=== PATIENT | female | born 1980 | race Caucasian/White ===

== ENCOUNTER 2017-07-17 16:50 | Emergency (ER) | payer MEDICAID ==
--- NOTE | 2017-07-17 23:01 | OBHP ---
Datetime: 07/17/2017 19:20 IP Adm Impression: , intrauterine IP Chief Complaint Other: pelvic pain IP Admit Plan: Observation/Evaluation; Discharge home Admit Comment, IP Provider: CC: pelvic pain HPI: 36 YO @ 25.5wks IUP (THANH 10/25/17 per U/S) presents to [facility] for palvic pain. Pt states th at she feels increase pressure in her pelvis since last night. Pain is dull, and has remained stable throughout. No increase in intensity. Endorsing good FM, no LOF, VB and ctx. Of note, pt recently came to the from [facility] 8 days go, was getting prental care [place]. MD: in [facility] ObHx: full term x 2 last (2014 last one); GDM in the past pregnancies; currently on Insu shelby TID (10U/15U/10U) states that her fasting is 120's and post is 140's-160's. PMH: DM SurgH: x 2 (last 2014) FH: hx of DM and HTN in family SH: , denies smoking, ETOH and illict drug use Meds: insulin, PNV, folic acid Allergies: NKDA PE GEN: NAD Cardio: S1S2 no additional heart sounds Resp: clear breath sounds b/l Abdomen: Gravid, NT, BS+ Neuro: AAO x 3 Extre: NT, mild pedal edema noted Doppler: HR 150's FM: no ctx noted Cervx: closed, thick and high A/P: 36 YO @ 25.5 wks IUP is evaluted for pelvic pressure, like 2/2 to round ligament pain. P t states that the pain has improved since she came to the hospital. No ctx on monitor, with HR in 150's. -observe and continue FM -FSG was 169, uncontrolled DM -reevaluate Pt was reevaluted, states that she no longer has the pain now. She would like to follow up in clin ic for care. Pt informed that due to her geststaional age, our clinic will not be able to pr ovide her care, but pt given alternative clinic information for further care. Pt encouraged to follow up in clinic due to her being a high risk . Pt educated on better control of her d iabetes, diet. ER pracautions provided. Pt understands and agrees with plan. Case disussed with attending Dr. Jass Batres, PGY I The patient was seen with the resident and I agree with the note. Pelvic Type - PN: Adequate Extremities - PN: Normal Abdomen - PN: Normal Back - PN: Normal Breast - PN: Not Done Lungs - PN: Normal Heart - PN: Normal Thyroid - PN: Not Done Neurologic - PN: Normal HEENT - PN: Normal General - PN: Normal FHR - Baseline A Provider: 150's EGA AdmitDate IP: 25.5 Vital Signs Provider: Reviewed; Within Normal Limits IP Chief Complaint: Other Dilatation, Provider: closed Effacement, Provider: thick Station, Provider: high Genitourinary Exam: Normal DTRs - PN: Not Done
[2017-07-18 00:13] VITALS: BP 112/59; PULSE 84; RESP 18; TEMP 98.5; O2SAT 97
== END 2017-07-17 19:50 | disposition home or self-care (01) ==
LOC: H.EROB2 16:50
DX: O26.92 Pregnancy related conditions, unspecified, second trimester (principal); R10.2 Pelvic and perineal pain; Z3A.25 25 weeks gestation of pregnancy; Z87.59 Personal history of other complications of pregnancy, childbirth and the puerperium; O24.419 Gestational diabetes mellitus in pregnancy, unspecified control

== ENCOUNTER 2017-09-04 01:33 | Emergency (ER) | payer MEDICAID ==
[2017-09-04 08:46] VITALS: BP 100/71; PULSE 82
== END 2017-09-04 04:10 | disposition home or self-care (01) ==
LOC: H.EROB2 01:33
DX: O47.03 False labor before 37 completed weeks of gestation, third trimester (principal); Z3A.32 32 weeks gestation of pregnancy; O34.63 Maternal care for abnormality of vagina, third trimester; N89.8 Other specified noninflammatory disorders of vagina; O36.8131 Decreased fetal movements, third trimester, fetus 1

== ENCOUNTER 2017-10-26 21:47 | Inpatient (IN) | payer MEDICAID ==
[2017-10-26 22:05] VITALS: BMI 34.2
[2017-10-26] MEDS ORDERED: Lactated Ringer's 1,000 ML IV ONE ×2 (23:00→23:07)
[2017-10-26] MEDS ORDERED: ceFAZolin IV 2 gm in Dextrose 2 GM/50 ML BAG IVPB ONE (23:00)
[2017-10-26] MEDS ORDERED: Oxytocin 30 UNITS in Sodium Chloride 0.9% 500 ML IV ONE (23:10)
[2017-10-26] MEDS: Lactated Ringer's 1,000 ML IV SCH (23:45)
[2017-10-27 00:10] LABS: BASO % 0.3 % (0.0-2.0); EOS # 0.1 K/uL (0.0-0.7); EOS % 0.8 % (0.0-4.0); HEMOGLOBIN 12.1 g/dL (12.0-16.0); LYMPH # 1.6 K/uL (1.0-4.3); LYMPH % 18.5 % (20.0-40.0); MEAN CELL VOLUME 80.7 fl (81.0-99.0); MEAN CORPUSCULAR HEMOGLOBIN 26.4 pg (27.0-31.0); MEAN CORPUSCULAR HGB CONC 32.7 g/dL (33.0-37.0); MEAN PLATELET VOLUME 8.2 fl (7.2-11.7); MONO # 0.6 K/uL (0.0-0.8); MONO % 6.9 % (0.0-10.0); NEUT # 6.4 K/uL (1.8-7.0); NEUT % 73.5 % (50.0-75.0); RBC 4.56 Mil/uL (3.80-5.20); RED CELL DISTRIBUTION WIDTH 15.3 % (11.5-14.5); WHITE BLOOD COUNT 8.8 K/uL (4.8-10.8)
[2017-10-27 00:20] LABS: ALB/GLOB RATIO 0.9 (1.0-2.1); ALBUMIN 3.4 g/dL (3.5-5.0); ALT/SGPT 24 U/L (9-52); AST/SGOT 26 U/L (14-36); BLOOD UREA NITROGEN 10 mg/dl (7-17); GFR NON-AFRICAN AMERICAN > 60
[2017-10-27] MEDS ORDERED: Fentanyl/Bupivacaine HCl 250 ML EPI ONE (02:41)
[2017-10-27] MEDS ORDERED: Dextrose 5%/Lactated Ringer's 1,000 ML IV SCH (02:45)
[2017-10-27] MEDS: Lactated Ringer's 1,000 ML IV SCH (04:00)
--- NOTE | 2017-10-27 06:11 | OBADHP ---
Datetime: 10/26/2017 22:39 IP Chief Complaint Other: Gest DM Admit Comment, IP Provider: Pt is a 39.2wk with THANH 10/31/17 based on LMP 01/17/17 and 9 wk U /s 03/30/17 here due to suspected ROM at 9:30pm. She states there was a gush of fluid in her pants al so feels contractions. She was supposed to have a C section today at [facility] but s tates she didnt feel like going due to not feeling well. Denies vaginal bleeding, states good m ovements. Patient is a [facility] patient. Patient last had a meal at 9:30pm. OB Hx: 2 C sections Gest DM (2011, 2014) [employer] Hx: Denies STI's, last sexually active 1 month ago PNL: unknown GBS status, Quantiferon + had the BCG vaccine, states her said she can get a CXR after the delivery, ABO: B+, unknown TDAP, all other labs unremarkable PMH: DM- Dx 2017, HLD, Vit D def Meds: Insulin NPH 40 units, Humalin R 16 units, then 30 units at night, Prenatals, Calcium, Tyleno l Allergies: NKDA Family Hx: DM-Mom, Dad Social Hx: Denies smoking, alcohol, or drug use Surg Hx: 2 C sections (2011, 2014) A/P: 39.2 wk IUP with Gest DM here with SROM/contractions - Monitor heart tracings - Check finger stick glucose- 118, continue to monitor - Speculum exam check for rupture- Nitrazine blue + - Check for cervical change- 2cm dilated - Admit to L _ D, CBC, CMP, type and screen - Post cut insulin dose in half continue to wean off back to metformin Kyra Mendes M.D. PGY-1 Patient seen and case discussed with Dr. Peralta Addendum by Dr. Peralta: Patient evaluated independently and I agree with the above. Patient consent ed for surgery, Ancef give pre-operatively, SCDs placed bilaterally. FS = 118, the 61. D5NS started a fter FS of 61, FS subsequently was 101. All questions answered - will start patient on sliding scale insulin for sugar coverage Extremities - PN: Normal Abdomen - PN: Abnormal Lungs - PN: Normal Heart - PN: Normal Neurologic - PN: Normal HEENT - PN: Normal General - PN: Normal FHR - Baseline A Provider: 140 Amniotic Fluid Color, Provider: Clear Membranes, Provider: Ruptured Contraction Comments Provider: Yes Comments, ACOG Physical Exam: Obese abdomen 1+ pitting edema R>L Pool Provider: Positive Nitrazine Provider: Positive IP Hx Assessment: The History has been Reviewed and is Current Vital Signs Provider: Reviewed IP Chief Complaint: Uterine contractions; Suspected ruptured membranes NICHD Variability Prov Fetus A: Moderate 6-25bpm NICHD Accel Fetus A IP Provider: [id number] FHR Category Provider Fetus A: Category I NICHD Decel Fetus A IP Provider: None Dilatation, Provider: 2 Genitourinary Exam: Normal EGA AdmitDate IP: 39.2 IP Adm Impression: Term, intrauterine IP Admit Plan: Admit to unit Datetime: 07/17/2017 19:20 Pelvic Type - PN: Adequate Back - PN: Normal Breast - PN: Not Done Thyroid - PN: Not Done Effacement, Provider: thick Station, Provider: high DTRs - PN: Not Done
[2017-10-27] MEDS ORDERED: Morphine 1 mg/ml preservative-free Inj(Duramorph) ONE (06:32)
[2017-10-27] MEDS ORDERED: Phenylephrine 10 mg/ml Inj ONE (06:32)
[2017-10-27] MEDS ORDERED: ePHEDrine 50 mg/ml Inj ONE (06:32)
[2017-10-27] MEDS ORDERED: DiphenhydrAMINE 50 mg/ml Inj IVP PRN ×2 (08:03→11:19)
[2017-10-27] MEDS ORDERED: Oxycodone/Acetaminophen 5/325 mg Tab PO PRN ×3 (08:20→11:19)
--- NOTE | 2017-10-27 08:20 | OBDS ---
DELIVERY PERSONNEL Delivery Doctor: Eryn Peralta MD Scrub Nurse: Dian Nieves OBT Negotiator: Rocky Mcconnell RN Anesthesiologist: Ronald Solis MD MATERNAL INFORMATION Delivery Anesthesia: Epidural Medications in Delivery: pitocin 30 units in 500 ml lr Estimated Blood Loss (ml): 800 Placenta Cultured: No Maternal Complications: None Provider Comments: Surgeon: Dr. Peralta Automotive Specialty Technician: Dr. Jules Pre-op Dx: Previous x 2, ROM, Type II DM on insulin Surgery: Repeat Post-op: Same Findings: Live female infant, 8lbs 15 oz, 9/9, cephalic, clear fluid, grossly nml tubes, ovaries, uterus EBL:800mL UO: 75mL TOtal input: 1400mL Complications: none Condition: Stable Pathology: cord blood LABOR SUMMARY EDC: 10/31/2017 00:00 No. Babies in Womb: 1 Attempted: No Labor Anesthesia: None LABOR INFORMATION Reason for Induction: Not Applicable Onset of Labor: 10/26/2017 21:30 Other Ripening Agents: N/A Oxytocin: N/A Group B Beta Strep: unknown Antibiotics # of Doses: 0 Steroids Given: None Reason Steroids Not Administered: Not Applicable Other Reason Not Administered: N/A MEMBRANES Membranes Rupture Method: Spontaneous Rupture of Membranes: 10/26/2017 21:30 Length of Rupture (hrs): 9.55 Amniotic Fluid Color: Clear Amniotic Fluid Amount: Moderate Amniotic Fluid Odor: Normal STAGES OF LABOR Stage 3 hrs: 0 Stage 3 min: 1 Total Time in Labor hrs: 9 Total Time in Labor min: 34 CSECTION DELIVERY Primary Indication: Repeat C Section CSection Urgency: Non Elective CSection Incidence: Repeat Labor: N/A Elective: Nonelective CSection Incision: Lower Uterine Transverse BABY A INFORMATION Infant Delivery Date/Time: 10/27/2017 07:03 Method of Delivery: Born in Route : No : N/A Forceps: N/A Vacuum Extraction: N/A Shoulder Dystocia : No SHOULDER DYSTOCIA BABY A Infant Delivery Date/Time: 10/27/2017 07:03 PRESENTATION/POSITION BABY A Presentation: Cephalic Cephalic Presentation: Vertex Breech Presentation: N/A PLACENTA INFORMATION BABY A Placenta Delivery Time : 10/27/2017 07:04 Placenta Method of Delivery: Manual Removal Placenta Status: Delivered SCORES BABY A Heart Rate 1 min: >100 bpm Resp Effort 1 min: Good Cry Reflex Irritability 1 min: Cough or Sneeze or Pulls Away Muscle Tone 1 min: Active Motion Color 1 min: Body Conover, Extremities Blue Resuscitation Effort 1 min: Tactile Stimulation SCORE 1 MIN: 9 Heart Rate 5 min: >100 bpm Resp Effort 5 min: Good Cry Reflex Irritability 5 min: Cough or Sneeze or Pulls Away Muscle Tone 5 min: Active Motion Color 5 min: Body Conover, Extremities Blue Resuscitation Effort 5 min: N/A SCORE 5 MIN: 9 INFORMATION BABY A Gestational Age at Delivery: 39.3 Gestational Status: Term Outcome : Liveborn Infant Condition : Stable Infant Sex: Female IDENTIFICATION/MEDS BABY A ID Band Number: [id number] ID Band Location: Left Leg; Left Arm Vitamin K Given : Not Given Erythromycin Given: Not Given WEIGHT/LENGTH BABY A Birthweight (gms): 4050 Weight (lb): 8 Weight (oz): 15 CORD INFORMATION BABY A No. Cord Vessels: 3 Nuchal Cord : N/A Nuchal Cord Other: 0 True Knot: 0 Infant Cord pH Baby Arterial: N/A Infant Cord pH Baby Venous: N/A Cord Blood Taken: Yes Banking/Donate Info: NA Infant Suction: Mouth; Nose ASSESSMENT BABY A Complications: None Physical Findings at Delivery: Within Normal Limits Infant Respirations: Appears Normal Mobile Lounge Driver/ALS Called : No Care By: Dr Carter/ Saira Dorman Rn Transferred To: Remains with Mother
[2017-10-27] MEDS ORDERED: Dextrose 50% SYRINGE Inj (50 ml) IV PRN (08:27)
[2017-10-27] MEDS ORDERED: Glucagon Recombinant 1 mg Inj IM PRN (08:27)
[2017-10-27] MEDS ORDERED: Multivitamin With Minerals Tab PO SCH (09:00)
[2017-10-27] MEDS ORDERED: Simethicone 80 mg Chewtab PO SCH (10:00)
[2017-10-27] MEDS: Simethicone 80 mg Chewtab PO SCH ×2 (16:54→21:47)
[2017-10-27] MEDS: Insulin Regular 100 units/ml SC SCH ×2 (16:58→23:00)
--- NOTE | 2017-10-27 20:22 | CP.PCM.CON ---
History of Present Illness - History of Present Illness History of Present Illness: This is a 37 yo female with past medical history of pregestational diabetes who was on Metformin 750 mg po daily, and since being (LMP 01/17/2017) she has been on Insulin NPH 40 units, Humalin R 16 units AC. The patient delivered via C section which was performed successfully. Hospitalist service was consulted for postoperative management of her diabetes. Patient denies chest pain, shortness of breath, fevers, chills, nausea, vomiting, diarrhea, headache. All of the patient's questions were answered at the bedside. PMH: Type 2 DM dx in 2017, HLD, Vitamin D deficiency Allergies: NKDA Family Hx: Both mother and father had type 2 DM Social history: Denies smoking, ETOH, or drug use Surg Hx: 3 C sections (2011, 2014, 2017) Review of Systems - Review of Systems Review of Systems: A 12 point review of systems was conducted and found to be negative other than what was mentioned in the HPI. Past Patient History - Infectious Disease Hx of Infectious Diseases: None - Past Medical History & Family History Past Medical History?: Yes - Past Social History Smoking Status: Never Smoked Alcohol: None Drugs: Denies Home Situation {Lives}: With Family Meds Allergies/Adverse Reactions: Allergies Allergy/AdvReac Type Severity Reaction Status Date / Time No Known Allergies Allergy Verified 07/17/17 17:22 - Medications Medications: Current Medications Diphenhydramine HCl (Benadryl) 50 mg IVP Q6 PRN PRN Reason: Itching / Pruritus Docusate Sodium (Colace) 100 mg PO BID [facility] Oxytocin 20 units/ Sodium (Chloride) 1,002 mls @ 125 mls/hr IV .Q8H1M VANESSA PRN Reason: Protocol Ibuprofen (Motrin Tab) 600 mg PO Q6H PRN PRN Reason: Pain, Mild (1-3) Ketorolac Tromethamine (Toradol) 30 mg IVP Q6 PRN PRN Reason: Pain, moderate (4-7) Last Admin: 10/27/17 11:31 Dose: 30 mg Metformin HCl (Glucophage) 750 mg PO DAILY [facility] Multivitamins/Minerals (Therapeutic-M Tab) 1 tab PO DAILY [facility] Ondansetron HCl (Zofran Inj) 4 mg IVP Q6 PRN PRN Reason: Nausea/Vomiting Last Admin: 10/27/17 11:31 Dose: 4 mg Oxycodone/Acetaminophen (Percocet 5/325 Mg Tab) 1 tab PO Q4 PRN PRN Reason: Pain, moderate (4-7) Stop: 10/30/17 08:21 Oxycodone/Acetaminophen (Percocet 5/325 Mg Tab) 2 tab PO Q4 PRN PRN Reason: Pain, severe (8-10) Stop: 10/30/17 08:21 Simethicone (Mylicon Chew Tab) 80 mg PO Q6 VANESSA Physical Exam - Additional Findings Additional findings: Physical exam: Constitutional- cooperative, awake, alert Head- NCAT, PERRL Eye- PERRL, EOMI ENT- normal exam, MMM. Neck- normal inspection, supple, no JVD Respiratory- CTAB, no wheezes rales rhonchi Cardiovascular- RRR, +S1, +S2 no MRG GI/Abdominal- normal bowel sounds, soft, no mass, no hsm Skin- warm, dry Extremities Exam- normal capillary refill, normal inspection Neurological Exam- alert, awake, oriented Psych- normal mood, normal affect Results - Vital Signs Recent Vital Signs: Last Vital Signs Temp 98.6 F 10/26/17 23:00 Pulse 98 H 10/26/17 23:00 Resp 17 10/26/17 23:00 BP 123/77 10/26/17 23:00 Pulse Ox - Labs Result Diagrams: 10/26/17 23:45 10/26/17 23:45 Labs: Laboratory Results - last 24 hr 10/26/17 10/26/17 10/26/17 23:24 23:45 23:45 WBC 8.8 RBC 4.56 Hgb 12.1 Hct 36.9 MCV 80.7 L MCH 26.4 L MCHC 32.7 L RDW 15.3 H Plt Count 217 MPV 8.2 Neut % (Auto) 73.5 Lymph % (Auto) 18.5 L Roane % (Auto) 6.9 Eos % (Auto) 0.8 Baso % (Auto) 0.3 Neut # (Auto) 6.4 Lymph # (Auto) 1.6 Roane # (Auto) 0.6 Eos # (Auto) 0.1 Baso # (Auto) 0.0 Sodium Potassium Chloride Carbon Dioxide Anion Gap BUN Creatinine Est GFR ( Amer) Est GFR (Non-Af Amer) POC Glucose (mg/dL) 118 H Random Glucose Calcium Total Bilirubin AST ALT Alkaline Phosphatase Total Protein Albumin Globulin Albumin/Globulin Ratio Blood Type B POSITIVE Antibody Screen Negative BBK History Checked No verified bt 10/26/17 10/27/17 10/27/17 23:45 02:26 04:07 WBC RBC Hgb Hct MCV MCH MCHC RDW Plt Count MPV Neut % (Auto) Lymph % (Auto) Roane % (Auto) Eos % (Auto) Baso % (Auto) Neut # (Auto) Lymph # (Auto) Roane # (Auto) Eos # (Auto) Baso # (Auto) Sodium 136 Potassium 4.1 Chloride 104 Carbon Dioxide 22 Anion Gap 14 BUN 10 Creatinine 0.5 L Est GFR ( Amer) > 60 Est GFR (Non-Af Amer) > 60 POC Glucose (mg/dL) 61 L 101 Random Glucose 112 H Calcium 9.0 Total Bilirubin 0.4 AST 26 ALT 24 Alkaline Phosphatase 147 H Total Protein 7.0 Albumin 3.4 L Globulin 3.6 Albumin/Globulin Ratio 0.9 L Blood Type Antibody Screen BBK History Checked 10/27/17 10/27/17 10/27/17 06:07 07:47 10:14 WBC RBC Hgb Hct MCV MCH MCHC RDW Plt Count MPV Neut % (Auto) Lymph % (Auto) Roane % (Auto) Eos % (Auto) Baso % (Auto) Neut # (Auto) Lymph # (Auto) Roane # (Auto) Eos # (Auto) Baso # (Auto) Sodium Potassium Chloride Carbon Dioxide Anion Gap BUN Creatinine Est GFR ( Amer) Est GFR (Non-Af Amer) POC Glucose (mg/dL) 79 82 80 Random Glucose Calcium Total Bilirubin AST ALT Alkaline Phosphatase Total Protein Albumin Globulin Albumin/Globulin Ratio Blood Type Antibody Screen BBK History Checked Assessment & Plan - Assessment and Plan (Free Text) Plan: ASSESSMENT/PLAN This is a 37 yo female with past medical history of pregestational diabetes who was on Metformin 750 mg po daily, and since being (LMP 01/17/2017) she has been on Insulin NPH 40 units, Humalin R 16 units AC. The patient delivered via C section which was performed successfully. Hospitalist service was consulted for postoperative management of her diabetes. 1) Type 2 DM (pregestational) diabetes mellitus - Patient ok to go back on Metformin 750 mg po daily - Start Regular insulin sliding scale (medium protocol) while in house, this may be discontinued on discharge if blood sugar remains under control. 2) Hyperlipidemia - To be followed up as outpatient - Encourage weight loss and DASH diet 3) Obesity - Encourage weight loss Thank you for the consultation, will sign off at this time, please reconsult if necessary
--- NOTE | 2017-10-27 21:15 | OP ---
PROCEDURE DATE: 10/27/2017 SURGEON: Nita Peralta MD PROOF INSPECTOR: Everett Jules DO PREOPERATIVE DIAGNOSES: 1. Previous section x2. 2. Term . 3. Rupture of membranes. 4. Type 2 diabetes, on insulin management. POSTOPERATIVE DIAGNOSES: 1. Previous section x2. 2. Term . 3. Rupture of membranes. 4. Type 2 diabetes, on insulin management. PROCEDURE: Repeat section. FINDINGS: Live female infant, 8 pounds 15 ounces, cephalic presentation, clear fluid, grossly normal tubes, ovaries, placenta, and uterus. Moderate amount of adhesions between muscle, peritoneum, and uterus. ESTIMATED BLOOD LOSS: 800 mL. URINE OUTPUT: 75 mL. TOTAL FLUID INPUT: 1400 mL. ANESTHESIA: Spinal by Dr. Solis COMPLICATIONS: None. CONDITION: Stable. PATHOLOGY SPECIMEN: Cord blood. INDICATION: This is a 37-year-old G3, P2-0-0-2 at 39-plus weeks; previous x2; type 2 diabetic, on insulin management; presented to Labor and Delivery with rupture of membranes and nataly. The patient was consented for a repeat , advised the risks and benefits of the procedure including risks of bleeding, infection, damage to surrounding organs. The patient verbalized understanding and signed informed consent. DESCRIPTION OF PROCEDURE: The patient was taken to the OR. Ancef was given preoperatively. SCDs were placed bilaterally. The patient was prepped and draped in normal sterile fashion in dorsal supine position with a leftward tilt. Pfannenstiel skin incision was made with a scalpel and carried through the underlying layer of fascia with the Bovie. Fascia was incised in the midline, and the incision was extended laterally with the Bovie. Leeroy clamp was used to tent up the inferior aspect of this incision, which was dissected off of the underlying pyramidalis muscles with the Bovie. In a similar fashion, we used Leeroy clamp to tent up the anterior aspect of the fascia, and we dissected off the rectus abdominis muscles as best as possible. There was moderate amount of adhesions. Peritoneum was entered. The incision was extended superiorly and inferiorly with good visualization of all underlying organs. Bladder blade was inserted. Vesicouterine peritoneum was grasped with Metzenbaum scissors, and the lower uterine segment was exposed. The bladder blade was again inserted. The lower uterine segment was incised in a transverse fashion with the scalpel. The uterine cavity was entered. The incision was extended manually. The infant was delivered in a cephalic presentation atraumatically followed by shoulders and rest of the infant atraumatically. Cord was clamped and cut. Infant was handed off to awaiting pediatric team. Cord blood was obtained. Placenta was extracted manually. Uterus was exteriorized and cleared off all clots. We reduced down the omentum and cauterized any bleeders we saw. Uterine incision was repaired with an 0 Vicryl stitch, and a second imbricating layer was sewn with an 0 Monocryl stitch. Good hemostasis was noted. Small bleeders were cauterized with Bovie. The uterus was returned to the abdomen. Gutters were cleared off all clots. Again, hysterotomy site was inspected and appeared to be hemostatic. The peritoneum was closed with 2-0 Vicryl. The muscle was reapproximated with the same stitch. Fascia was closed with an 0 Vicryl stitch. Subcutaneous bleeders were cauterized with Bovie. Subcutaneous fat was closed with a plain gut suture, and the skin was closed with 4-0 Monocryl. Sponge, lap, and needle counts were correct x4. The patient was taken to recovery room in stable condition. No other complications. Dr. Jules assisted in all aspects of delivery including retraction, cutting of suture, suturing and delivery of . Nita Peralta MD BRUNA
[2017-10-28] MEDS: Oxycodone/Acetaminophen 5/325 mg Tab PO PRN ×3 (00:14→20:41)
[2017-10-28] MEDS: Simethicone 80 mg Chewtab PO SCH ×4 (04:17→21:44)
[2017-10-28 06:16] LABS: HEMOGLOBIN 11.3 g/dL (12.0-16.0); MEAN CELL VOLUME 80.6 fl (81.0-99.0); MEAN CORPUSCULAR HEMOGLOBIN 26.7 pg (27.0-31.0); MEAN CORPUSCULAR HGB CONC 33.1 g/dL (33.0-37.0); RBC 4.23 Mil/uL (3.80-5.20); RED CELL DISTRIBUTION WIDTH 15.6 % (11.5-14.5); WHITE BLOOD COUNT 11.8 K/uL (4.8-10.8)
[2017-10-28] MEDS: Insulin Regular 100 units/ml SC SCH ×4 (07:21→22:14)
[2017-10-28] MEDS: Multivitamin With Minerals Tab PO SCH (09:15)
--- NOTE | 2017-10-28 14:24 | OBPPN ---
Datetime: 10/28/2017 09:53 PP Pain Prov: Within normal limits PP Nausea Prov: Denies PP Flatus Prov: Yes PP BM Prov: No PP Heart Prov: Normal PP Lungs Prov: Normal PP Abdomen/Uterus Prov: Normal PP Lochia Prov: Normal PP Extremities Prov: Normal PP C/S Incision Prov: Normal PP Progress Prov: Normal PP Impression Prov: Normal progression PP Plan Prov: Continue present management PP Progress Note Prov: S: Pt is a 37 yo 39.2 wk s/p C section on 10/27/17 POD 1. Seen and exa mined at bedside this am. Patient denies any significant overnight events. Reports abdominal pain wh ich is controlled with pain medicine. Will be OOB Ambulation today. Breast feeding/bottle without dif ficulty. Tolerating regular diabetic diet. Lochia is similar to menses. Llamas just removed. Patient has not had a bowel movement yet, but is passing gas per rectum. Patient had some N/V yesterday denie s any today, Denies fever/chills, diarrhea, constipation, CP/SOB , lightheadedness. O: BP:128/63, HR:70 CBC-11.3/34.1, blood type: B+, rubella: Immune PHYSICAL EXAM: GEN: AAOx3, Resting comfortably in bed, NAD HEENT: NCAT, White sclera, pink conjunctiva, oral mucosa moist. LUNGS: CTA B/L, no wheezing, rhonchi, or rales, B/L chest rise CVS: RRR, S1, S2, No murmurs, rubs, gallops ABD: ND, +BS, firm fundus @ umbilical level. Soft, appropriate TTP, Incision clean and dry intact no drainage or erythema EXT: no edema, negative Corey's sign, calves non tender NEURO/Psych: no gross focal deficit, preserved affect and mood. A/P 37 y/o s/p C -section on 10/27/17 @ 7:03 POD1. Pt afebrile, tolerating pain with medication , advancing diet today as tolerated, Llamas removed today Encouraged breast feeding and ambulation Ibuprofen 600mg mild pain Percocet 5/325mg 1 tab po q 4h for mod/severe pain PNV 1 tab po daily Colace and Tekztvz30.2mg PO HS for constipation Simethicone for flatulence F/U 1 wk for wound check 4-6 weeks for post- visit at [facility] Kyra Mendes M.D. PGY-1 Patient was seen and case discussed with Dr. Regan The patient was seen with the resident I agree with the notes IP PP Procedures: None
[2017-10-29] MEDS: Simethicone 80 mg Chewtab PO SCH ×5 (03:54→21:29)
[2017-10-29] MEDS: Oxycodone/Acetaminophen 5/325 mg Tab PO PRN ×2 (05:15→21:29)
[2017-10-29] MEDS: Multivitamin With Minerals Tab PO SCH ×2 (09:07→09:11)
--- NOTE | 2017-10-29 12:25 | CARD ---
APPROVED REPORT Date of service: 10/29/2017 EKG Measurement Heart [id number] <Conclusion> Normal sinus rhythm Normal ECG
[2017-10-29] MEDS: Insulin Regular 100 units/ml SC SCH ×3 (12:59→23:00)
[2017-10-30] MEDS: Oxycodone/Acetaminophen 5/325 mg Tab PO PRN (04:54)
[2017-10-30] MEDS: Simethicone 80 mg Chewtab PO SCH ×3 (07:41→15:05)
[2017-10-30] MEDS: Insulin Regular 100 units/ml SC SCH ×2 (07:41→12:00)
--- NOTE | 2017-10-30 10:01 | OBDCSUM ---
Datetime: 10/30/2017 07:20 Discharged to, Provider: Home Disch Instr Activity: Normal activity Disch Instr Diet: Regular Discharge Instructions, Provider: Routine instructions given Discharge Diagnosis, Provider: Term Delivered Follow up in weeks, Provider: 1wk wound check, 4-6 wk post Contraception discussed, Prov: Yes Disch Activity Restrictions: No exercising; No lifting; Minimize stair-climbing; No sexual activity; Nothing in vagina - Villarreal, tampons, douche Discharge Comment, Provider: Discharge Instructions: 1. Encouraged and ambulation 2. vitamin 1 tab po daily 3. Ibuprofen 600mg 1 tab as needed for mild pain 4. Percocet 5/325mg 1 tab as needed for severe pain 5. Senokot 17.2mg as needed for constipation 6. ER precautions: If excessive bleeding or fever without relief from medication, go to ED 7. Avoid stairs, exercising, heavy lifting 8. Nothing in vagina for 4-6weeks 9. Contraception post D/C- Possibly IUD 10. F/U at [facility] 1 wk wound check and in 4-6 weeks for post- visit The patient was seen with the resident I agree with the note Contraception after Delivery: IUD
--- NOTE | 2017-10-30 10:01 | OBPPN ---
Datetime: 10/30/2017 07:17 PP Pain Prov: Within normal limits PP Nausea Prov: Denies PP Flatus Prov: No PP BM Prov: No PP Heart Prov: Normal PP Lungs Prov: Normal PP Abdomen/Uterus Prov: Normal PP Lochia Prov: Normal PP Extremities Prov: Normal PP C/S Incision Prov: Normal PP Impression Prov: Normal progression PP Plan Prov: Continue present management PP Progress Note Prov: S: Pt is a 37 yo 39.2 wk s/p C section on 10/27/17 POD 3. Seen and exa mined at bedside this am. Denies any overnight events. Reports abdominal pain which is controlled w [facility] pain medicine. OOB Ambulating with mild dizziness. Blood sugar this morning was 74. Breast feedin g/bottle without difficulty. Tolerating regular diabetic diet. Lochia is similar to menses. Voiding well no blood noted. Patient has had a bowel movement and has passed gas per rectum. Denies fever/ch ills, diarrhea, nausea, vomiting, SOB , lightheadedness. O: BP:137/81, HR:66, T 98.4F CBC-11.3/34.1, blood type: B+, rubella: Immune PHYSICAL EXAM: GEN: AAOx3, Resting comfortably in bed, NAD HEENT: NCAT, White sclera, pink conjunctiva, oral mucosa moist. LUNGS: CTA B/L, no wheezing, rhonchi, or rales, B/L chest rise CVS: RRR, S1, S2, No murmurs, rubs, gallops ABD: ND, +BS, firm fundus @ umbilical level. Soft, appropriate TTP, Incision clean and dry intact no drainage orerythema EXT: no edema NEURO/Psych: no gross focal deficit, preserved affect and mood. A/P 37 y/o s/p C -section on 10/27/17 @ 7:03 POD 3. Pt afebrile, tolerating pain with medicatio n, tolerating regular diet, adequate urine output. EKG showed NSR Encouraged breast feeding and ambulation Ibuprofen 600mg mild pain Percocet 5/325mg 1 tab po q 4h for mod/severe pain PNV 1 tab po daily Hcyrtkt52.2mg PO HS for constipation Metformin 500mg 1 tab po daily, Novolin R 16units SC TID, Novolin N 40 Units SQ daily Post D/C contraception- IUD F/U 1 wk for wound check 4-6 weeks for post- visit at [facility] Kyra Mendes M.D. PGY-1 Patient was seen and case discussed with Dr. Regan The patient was seen with the resident I agree with the note IP PP Procedures: None Vital Signs Provider PP: Reviewed Datetime: 10/29/2017 07:48 PP Progress Prov: Normal
[2017-10-30] MEDS: Multivitamin With Minerals Tab PO SCH (15:05)
[2017-10-30 22:27] VITALS: BP 131/77; PULSE 62; RESP 20; TEMP 98; O2SAT 98
== END 2017-10-30 15:30 | disposition home or self-care (01) | DRG 371 ==
LOC: H.EROB2 21:47 → H.L&D 23:00 → H.OB/GYN 10-27 10:35
PROVIDERS: ADMIT Obstetrics & Gynecology; ATTEND Obstetrics & Gynecology
PROC: 10D00Z1 Extraction of Products of Conception, Low, Open Approach (ICD-10-PCS; principal; 2017-10-26)
PROC: 4A1HXCZ Monitoring of Products of Conception, Cardiac Rate, External Approach (ICD-10-PCS; 2017-10-26)
DX: O34.211 Maternal care for low transverse scar from previous cesarean delivery (principal); O24.424 Gestational diabetes mellitus in childbirth, insulin controlled; N85.8 Other specified noninflammatory disorders of uterus; O99.214 Obesity complicating childbirth; Z3A.39 39 weeks gestation of pregnancy; Z37.0 Single live birth; O99.284 Endocrine, nutritional and metabolic diseases complicating childbirth; E78.5 Hyperlipidemia, unspecified